=== PATIENT | male | born 1970 | race Hispanic/Latino ===

== ENCOUNTER 2021-10-26 18:34 | Emergency (ER) | payer OTHER ==
[~2021-10-26] VITALS: Ht 152.4 cm; Wt 68.0 kg
[2021-10-26 20:38] LABS: HEMATOCRIT 43.4 % (39.0-50.0); HEMOGLOBIN 14.8 g/dl (14.0-18.0); IMMATURE GRANULOCYTES 0.2 % (0.0-5.0); MEAN CELL VOLUME 96.9 fL CALC (80.0-100.0); MEAN CORPUSCULAR HGB CONC 34.1 g/dL CAL (32.0-36.0); NEUT# 9.33 thou/uL (1.82-7.42); RED BLOOD COUNT 4.48 mill/uL (4.70-6.10); RED CELL DISTRI WIDTH 12.1 % (11.5-15.5)
[2021-10-26 20:49] LABS: ALBUMIN 4.9 g/dL (3.2-5.0); ALKALINE PHOSPHATASE 131 u/l (38-126); ANION GAP 15 (6-22 (CALC)); BILIRUBIN, TOTAL 1.3 mg/dL (0.0-1.4); BUN 18 mg/dL (9-20); BUN/CREATININE RATIO 21 (12-20 (CALC)); CARBON DIOXIDE 24 mmol/l (22-30); CHLORIDE 100 mmol/l (95-108); CREATININE 0.9 mg/dL (0.7-1.3); GFR > 60 ML/MIN (>=60 (CALC)); GFR FOR AFR.AMER. > 60 ML/MIN (>=60 (CALC)); POTASSIUM 4.2 mmol/l (3.5-5.1); SGOT/AST 51 u/l (17-59); SODIUM 136 mmol/l (137-146); TOTAL PROTEIN 9.1 g/dL (6.3-8.2)
[2021-10-26 21:18] LABS: URINE BILIRUBIN - DIPSTICK NEGATIVE (NEGATIVE); URINE BLOOD DIPSTICK SMALL (NEGATIVE); URINE COLOR YELLOW; URINE GLUCOSE - DIPSTICK NEGATIVE (NEGATIVE); URINE KETONE 15 mg/dL (NEGATIVE); URINE LEUK ESTERASE NEGATIVE (NEGATIVE); URINE PROTEIN - DIPSTICK NEGATIVE (NEG-TRACE); URINE UROBILINOGEN - DIPSTICK 0.2 E.U./dL (0.2)
[2021-10-26 21:21] LABS: URINE NITRITE - DIPSTICK NEGATIVE (Negative)
[2021-10-26 21:29] LABS: URINE WBC 0-2 WBC/hpf (0-5)
[2021-10-26] MEDS ORDERED: MEDDOSEPAK PO (22:49)
[2021-10-26] MEDS ORDERED: TORADOL PO (22:49)
[2021-10-26] MEDS ORDERED: PERCOCET 5/325M1 TAB PO (22:49)
[2021-10-27 00:10] VITALS: BP 127/59
== END 2021-10-27 00:10 | disposition home or self-care (01) | DRG 552 ==
LOC: ED 18:34
PROVIDERS: Emergency Medicine
DX: S32.010A Wedge compression fracture of first lumbar vertebra, initial encounter for closed fracture (principal); W14.XXXA Fall from tree, initial encounter; Y93.89 Activity, other specified; Y99.0 Civilian activity done for income or pay; Y92.74 Orchard as the place of occurrence of the external cause
CPT/HCPCS: Q9967